=== PATIENT | male | born 1950 | race Two or more races ===

== ENCOUNTER → 2022-05-03 | Outpatient (CLI) | payer OTHER | END | disposition home or self-care (01) | LOC: NUCLEAR 09:24 | DX: R55 Syncope and collapse (principal) ==

== ENCOUNTER 2023-08-19 04:01 | Emergency (ER) | payer OTHER ==
[~2023-08-19] VITALS: Ht 170.2 cm; Wt 58.1 kg
== END 2023-08-19 04:54 | disposition home or self-care (01) ==
LOC: ER 04:02
DX: M25.562 Pain in left knee (principal); M25.561 Pain in right knee
CPT/HCPCS: 96372; 99284; J1885

== ENCOUNTER 2023-08-20 20:54 | Emergency (ER) | payer OTHER ==
[~2023-08-20] VITALS: Ht 170.2 cm; Wt 56.7 kg
== END 2023-08-20 22:14 | disposition home or self-care (01) ==
LOC: ER 20:56
DX: M25.571 Pain in right ankle and joints of right foot (principal); M25.572 Pain in left ankle and joints of left foot
CPT/HCPCS: 96372; 99283; J1100; J1885

== ENCOUNTER 2024-03-08 17:52 | Inpatient (IN) | payer OTHER ==
[~2024-03-08] VITALS: Ht 162.6 cm; Wt 72.6 kg
--- NOTE | 2024-03-08 17:58 | NUR ---
SE RECIBE PTE MASCULINO DE 73 ANOS AAOX3 QUIEN AL MOMENTO REFIERE DEBILIDAD. PTE SE OBSERBA CON CATETER SANCHEZ PATENTE Y DRENANDO A GRAVEDAD. PTE SE OBSERBACON CON EXTREMIDADER IFERIORES. PTE INDICA LLEGAR DE R.D E INDICA PREVIO A LLEGADA EN P.R PTE PRECENTABA OCSTA ULCERA PEPTICA LA CUAL ESTABA SANGRADA. SE MONITOREAN S.V Y SE UBICA.
[2024-03-08] MEDS ORDERED: 0.9 % SODIUM CHLORIDE 1,000 ML IV STA (19:01)
[2024-03-08 19:15] LABS: HEMATOCRIT 32.9 % (39.0-48.0); HEMOGLOBIN 10.8 g/dL (13-16.00); MEAN CELL VOLUME 81.7 fL (80.0-100.00); MEAN CORPUSCULAR HEMOGLOBIN 26.7 pg (27.00-32.0); MEAN CORPUSCULAR HGB CONC 32.7 g/dl (32.0-36.0); PLATELET COUNT 217 K/uL (150-450); RED BLOOD COUNT 4.03 M/uL (4.00-6.00); RED CELL DISTRIBUTION WIDTH 23.9 % (11.5-14.5)
[2024-03-08 19:16] LABS: ABG PH 7.493 (7.35-7.45); ABG PO2 83.4 mmHg (80-100); ABG pCO2 43.9 mmHg (35-45); BASE EXCESS 8.6 mmol/l; BICARBONATE 32.9 mmol/l (23-25); SaO2 97.3 %; Tco2 34.3 mmol/l
[2024-03-08 19:30] LABS: ERYTHROCYTE SEDIMENTATION RATE 56 mm/hr
[2024-03-08 19:35] LABS: allen test SATISFACTORY; o2 32 %; puncture site RADIAL RIGHT
[2024-03-08 19:39] LABS: ALBUMIN 2.5 gm/dL (3.4-5.0); BILIRUBIN TOTAL 0.55 mg/dL (0.3-1.2); CALCIUM 8.9 mg/dL (8.5-10.1); CREATININE SERUM 1.03 mg/dL (0.70-1.30); GFR 70.99; GLOBULINA 3.8 G/DL (2.4-3.5); POTASSIUM 3.73 mEq/L (3.5-5.1); TOTAL PROTEIN 6.3 gm/dL (6.4-8.2)
[2024-03-08 19:41] LABS: INR 1.09; PARTIAL THROMBOPLASTIN TIME 29.9 SECONDS (22.0-34.0); PROTHROMBIN TIME 11.4 SECONDS (9.0-11.5)
--- NOTE | 2024-03-08 19:47 | NUR ---
SE CONECTA A PTE A MONITOR CARDIACO, NBP Y OXIMETRIA CONTINUA. SE LE ORIENTA A PTE SOBRE TRATAMIENTO E INSTRUCCIONES A SEGUIR, EL REFIERE ENTENDER. SE COLECTA MUESTRAS, SE CANALIZA Y SE ADMINISTRA MEDICAMENTO [facility]. PTE CON [facility]ANIEL DE [facility] ([id number]).
[2024-03-08 19:55] LABS: C-REACTIVE PROTEIN 10.5 MG/DL (0.00-0.29)
[2024-03-08 21:46] LABS: URINE APPEARANCE Clear; URINE BILIRRUBIN Negative (NEGATIVE); URINE BLOOD Negative; URINE COLOR Yellow; URINE GLUCOSE Negative (NEGATIVE); URINE KETONE Negative (NEGATIVE); URINE LEUKOCYTE Trace; URINE NITRATE Negative; URINE PROTEIN 30 (NEGATIVE); URINE UROBILINOGEN 0.2 E.U./dl
[2024-03-08 21:50] LABS: URINE BACTERIA 17.6 uL (0.0-1933); URINE RBC 16.1 uL (0.0-20.8); URINE WBC 15.5 uL (0.0-23.2)
[2024-03-08 21:52] LABS: URINE CAST 1.06 uL (0.0-1.40)
--- NOTE | 2024-03-08 23:20 | NUR ---
SE RECIBE PTE MASCULINO ALERTA Y ORIENTADO X3 DEL TURNO ANTERIOR EN CAMA #2 DE UNIDAD DE CRITICO; CONECTADO A MONITOR CARDIACO Y OXIMETRIA DE PULSO CONTINUA. PTE ASISTIDO RESPIRATORIAMENTE CON CANULA NASAL A 3LT/MIN PRESENTANDO SATURACION DE O2 MANUAL AL 100%, AL MOMENTO SIN QUEJA DE DOLOR. VENOPUNCION PATENTES X2 LIBRES DE EDEMA Y ERITEMA, RECIBIENDO TERAPIA DE IVFS 0.9NSS BAJANDO A 65ML/HR. ABDOMEN BLANDO Y DEPRESIBLE CON PERISTALSIS PRESENTE. SONDA URINARIA A GRAVEDAD DRENANDO EGRESO DE ORINA COLOR AMARILLO OSCURO CON APROXIMADAMENTE 100ML. PTE EN CAMA NIVEL MAS BAJO, CABECERA A 45 GRADOS, BARANDAS ELEVADAS Y FRENOS COLOCADOS POR SEGURIDAD. PENDIENTE RE-EVALUACION MEDICA. SE OBSERVA POR CAMBIOS.
--- NOTE | 2024-03-09 07:31 | NUR ---
SE RECIBE PTE MASCULINAS EN UNIDAD DE CRITICO EN RICHY #2. PTE ALERTA Y ORIENTADO X3. EN DESCANZO EN CAMA BAJA CON BARANDAS ELEVADAS Y ESPALDAR A 45 GRADOS. PTE CONECTADO A OXIMETRIA DE PULSO CONTINUO Y MONITOR CARDIACO CON SPO2 DE 99% AL MOMENTO DE RECIBIMIENTO. SE URIAH SV Y SE DOCUMENTAN. PTE ASISTIDO RESPIRATORIAMENTE CON CANULA NASAL A 3LT/MIN. EXTREMIDADES SUPERIORES LIBRES DE EDEMA Y ERITEMA Y 2 CANALIZACIONES PATENTES EN LA CON 0.9NSS @120ML/HR. ABDOMEN BLANDO AL TACTO CON PERISTALSIS PRESENTE Y SONDA URINARIA SANCHEZ BAJANDO A GRAVEDAD CON ORINA COLOR AMARILLO OSCURO. EXTREMIDADES SUPERIORES LIBRES DE EDEMA Y ERITEMA. AL MOMENTO DE RECIBIMIENTO PTE NO REFIERE DOLOR.
[2024-03-09] MEDS ORDERED: FUROsemide 20 MG/2 ML VIAL IV STA (11:46)
[2024-03-09] MEDS ORDERED: CARVEDILOL 3.125 MG TABLET PO SCH (12:05)
[2024-03-09] MEDS ORDERED: FUROsemide 20 MG/2 ML VIAL IV SCH (12:06)
[2024-03-09] MEDS ORDERED: PANTOPRAZOLE SODIUM 40 MG/VIAL VIAL IV SCH (12:07)
[2024-03-09] MEDS ORDERED: 0.9 % SODIUM CHLORIDE 1,000 ML IV SCH (12:15)
[2024-03-09] MEDS ORDERED: CEFTRIAXONE SODIUM 1,000 MG VIAL IV ONE (12:15)
[2024-03-09] MEDS ORDERED: LISINOPRIL 2.5 MG TABLET PO STA (12:32)
[2024-03-09 17:07] LABS: HEMATOCRIT 34.1 % (39.0-48.0); HEMOGLOBIN 10.9 g/dL (13-16.00); MEAN CELL VOLUME 81.6 fL (80.0-100.00); MEAN CORPUSCULAR HEMOGLOBIN 26.2 pg (27.00-32.0); MEAN CORPUSCULAR HGB CONC 32.1 g/dl (32.0-36.0); PLATELET COUNT 273 K/uL (150-450); RED BLOOD COUNT 4.18 M/uL (4.00-6.00); RED CELL DISTRIBUTION WIDTH 23.5 % (11.5-14.5)
[2024-03-09 17:39] LABS: CHOL HDL RATIO 6.6 (0-5.0); MAGNESIUM 2.2 mg/dL (1.8-2.4)
[2024-03-10] MEDS ORDERED: FUROsemide 20 MG/2 ML VIAL IV SCH (17:00)
[2024-03-10] MEDS ORDERED: LOSARTAN POTASSIUM 25 MG TABLET PO SCH (17:00)
[2024-03-10] MEDS ORDERED: PANTOPRAZOLE SODIUM 40 MG/VIAL VIAL IV SCH (21:00)
[2024-03-11] MEDS ORDERED: SUCRALFATE 1 G TABLET PO SCH (13:00)
[2024-03-12 06:34] LABS: MEAN CELL VOLUME 80.1 fL (80.0-100.00); MEAN CORPUSCULAR HGB CONC 33.5 g/dl (32.0-36.0); PLATELET COUNT 311 K/uL (150-450); RED BLOOD COUNT 2.27 M/uL (4.00-6.00); RED CELL DISTRIBUTION WIDTH 23.7 % (11.5-14.5)
[2024-03-12 08:08] LABS: HEMATOCRIT 18.2 % (39.0-48.0); MEAN CORPUSCULAR HEMOGLOBIN 26.8 pg (27.00-32.0)
[2024-03-12 08:09] LABS: HEMOGLOBIN 6.1 g/dL (13-16.00)
[2024-03-12] MEDS ORDERED: PANTOPRAZOLE SODIUM 40 MG/VIAL VIAL IV SCH (10:34)
[2024-03-12] MEDS ORDERED: PANTOPRAZOLE SODIUM 80 MG in 0.9 % SODIUM CHLORIDE 100 ML IV SCH ×2 (11:00→11:30)
[2024-03-12] MEDS ORDERED: HEPARIN SODIUM,PORCINE 5,000 UNITS/ML VIAL IV ONE (17:45)
[2024-03-13 21:27] LABS: HEMATOCRIT 27.6 % (39.0-48.0); MEAN CELL VOLUME 81.8 fL (80.0-100.00); MEAN CORPUSCULAR HGB CONC 33.5 g/dl (32.0-36.0); PLATELET COUNT 396 K/uL (150-450); RED BLOOD COUNT 3.38 M/uL (4.00-6.00); RED CELL DISTRIBUTION WIDTH 21.8 % (11.5-14.5)
[2024-03-13 21:34] LABS: HEMOGLOBIN 9.3 g/dL (13-16.00); MEAN CORPUSCULAR HEMOGLOBIN 27.5 pg (27.00-32.0)
[2024-03-14 18:18] LABS: HEMATOCRIT 33.8 % (39.0-48.0); HEMOGLOBIN 11.2 g/dL (13-16.00); MEAN CELL VOLUME 82.6 fL (80.0-100.00); MEAN CORPUSCULAR HEMOGLOBIN 27.4 pg (27.00-32.0); MEAN CORPUSCULAR HGB CONC 33.2 g/dl (32.0-36.0); PLATELET COUNT 399 K/uL (150-450); RED BLOOD COUNT 4.09 M/uL (4.00-6.00)
[2024-03-15] MEDS ORDERED: MIDAZOLAM HCL 2 MG/2 ML VIAL IV STA (10:58)
[2024-03-15] MEDS ORDERED: fentaNYL CITRATE 50 MCG/ML AMPUL IV STA (10:59)
[2024-03-17] MEDS ORDERED: PANTOPRAZOLE SODIUM 40 MG TABLET.DR PO SCH (09:00)
[2024-03-18] MEDS ORDERED: CARVEDILOL3.125 MG PO (09:44)
[2024-03-18] MEDS ORDERED: PANTOPRAZOLE SO40 MG PO (09:44)
[2024-03-18] MEDS ORDERED: FUROSEMIDE10 MG/1 M1 IV (09:44)
[2024-03-18] MEDS ORDERED: CARAFATE1 GM PO (09:44)
== END 2024-03-18 15:53 | disposition home or self-care (01) | DRG 377 ==
LOC: ER 17:52 → MEDI 03-09 12:32 → ICU 03-12 14:18 → SURG 03-16 06:12
PROVIDERS: Emergency Medicine; General Practice; ADMIT Internal Medicine; ATTEND Internal Medicine
PROC: 4A12X4Z Monitoring of Cardiac Electrical Activity, External Approach (ICD-10-PCS; 2024-03-09)
PROC: BW21ZZZ Computerized Tomography (CT Scan) of Abdomen and Pelvis (ICD-10-PCS; 2024-03-09)
PROC: BB24ZZZ Computerized Tomography (CT Scan) of Bilateral Lungs (ICD-10-PCS; 2024-03-09)
PROC: B246ZZZ Ultrasonography of Right and Left Heart (ICD-10-PCS; 2024-03-09)
PROC: 30233N1 Transfusion of Nonautologous Red Blood Cells into Peripheral Vein, Percutaneous Approach (ICD-10-PCS; 2024-03-12)
PROC: 0DB78ZX Excision of Stomach, Pylorus, Via Natural or Artificial Opening Endoscopic, Diagnostic (ICD-10-PCS; principal; 2024-03-15)
DX: K92.2 Gastrointestinal hemorrhage, unspecified (principal); I50.31 Acute diastolic (congestive) heart failure; I27.20 Pulmonary hypertension, unspecified; D64.9 Anemia, unspecified

== ENCOUNTER 2024-07-25 18:40 | Emergency (ER) | payer OTHER ==
[~2024-07-25] VITALS: Ht 170.2 cm; Wt 46.3 kg
[~2024-07-25 18:40] MED LIST: CARAFATE1 GM PO; CARVEDILOL3.125 MG PO; FUROSEMIDE10 MG/1 M1 IV; PANTOPRAZOLE SO40 MG PO
[2024-07-25 18:51] VITALS: BP 105/73; O2SAT 100
[2024-07-25 20:29] LABS: HEMATOCRIT 37.1 % (39.0-48.0); HEMOGLOBIN 11.6 g/dL (13-16.00); MEAN CORPUSCULAR HEMOGLOBIN 23.4 pg (27.00-32.0); MEAN CORPUSCULAR HGB CONC 31.2 g/dl (32.0-36.0); PLATELET COUNT 289 K/uL (150-450); RED BLOOD COUNT 4.95 M/uL (4.00-6.00); RED CELL DISTRIBUTION WIDTH 22.7 % (11.5-14.5)
[2024-07-25 20:46] LABS: ALBUMIN 3.7 gm/dL (3.4-5.0); BILIRUBIN TOTAL 0.15 mg/dL (0.3-1.2); CALCIUM 9.8 mg/dL (8.5-10.1); CREATININE SERUM 1.04 mg/dL (0.70-1.30); GFR 70.2; GLOBULINA 4.5 G/DL (2.4-3.5); POTASSIUM 5.45 mEq/L (3.5-5.1); TOTAL PROTEIN 8.2 gm/dL (6.4-8.2)
== END 2024-07-25 22:16 | disposition home or self-care (01) ==
LOC: ER 18:42
PROVIDERS: General Practice
DX: R13.10 Dysphagia, unspecified (principal); I10 Essential (primary) hypertension

== ENCOUNTER 2024-08-17 14:51 | Inpatient (IN) | payer OTHER ==
[~2024-08-17] VITALS: Ht 231.1 cm; Wt 47.6 kg
[2024-08-17] MEDS ORDERED: RINGERS SOLUTION,LACTATED 1,000 ML IV SCH ×2 (16:30→23:15)
[2024-08-17 17:22] LABS: HEMATOCRIT 36.4 % (39.0-48.0); HEMOGLOBIN 11.6 g/dL (13-16.00); MEAN CELL VOLUME 73.2 fL (80.0-100.00); MEAN CORPUSCULAR HEMOGLOBIN 23.3 pg (27.00-32.0); MEAN CORPUSCULAR HGB CONC 31.9 g/dl (32.0-36.0); PLATELET COUNT 325 K/uL (150-450); RED BLOOD COUNT 4.97 M/uL (4.00-6.00); RED CELL DISTRIBUTION WIDTH 22.8 % (11.5-14.5)
[2024-08-17 17:23] LABS: ALBUMIN 3.4 gm/dL (3.4-5.0); BILIRUBIN TOTAL 0.34 mg/dL (0.3-1.2); CALCIUM 9.8 mg/dL (8.5-10.1); CREATININE SERUM 1.04 mg/dL (0.70-1.30); GLOBULINA 4.8 G/DL (2.4-3.5); POTASSIUM 4.86 mEq/L (3.5-5.1); TOTAL PROTEIN 8.2 gm/dL (6.4-8.2)
[2024-08-17 18:31] LABS: INR 1.03; PARTIAL THROMBOPLASTIN TIME 26.3 SECONDS (22.0-34.0); PROTHROMBIN TIME 11.2 SECONDS (9.0-11.5)
[2024-08-17 22:02] LABS: URINE APPEARANCE Clear; URINE BILIRRUBIN Negative (NEGATIVE); URINE BLOOD Negative; URINE COLOR Yellow; URINE GLUCOSE Negative (NEGATIVE); URINE KETONE Trace (NEGATIVE); URINE LEUKOCYTE Negative; URINE NITRATE Negative; URINE PROTEIN Negative (NEGATIVE); URINE UROBILINOGEN 0.2 E.U./dl
[2024-08-17 22:05] LABS: URINE BACTERIA 4.8 uL (0.0-1933); URINE EPITHELIAL CELLS 1.4 uL (0.0-38.8); URINE WBC 3.1 uL (0.0-23.2)
[2024-08-17 22:08] LABS: URINE CAST 0.29 uL (0.0-1.40); URINE RBC 0.4 uL (0.0-20.8)
[2024-08-17] MEDS ORDERED: PANTOPRAZOLE SODIUM 40 MG in 0.9 % SODIUM CHLORIDE 8 ML IV PUSH SCH (23:11)
[2024-08-17] MEDS ORDERED: ONDANSETRON HCL 4 MG in DEXTROSE 5 % IN WATER 50 ML IV PRN (23:15)
[2024-08-17] MEDS ORDERED: MORPHINE SULFATE 2 MG/ML CARTRIDGE IV PRN (23:15)
[2024-08-17] MEDS ORDERED: hydrALAZINE HCL 20 MG VIAL IV PRN (23:15)
[2024-08-18 05:57] VITALS: BP 98/62
[2024-08-18 08:07] LABS: INR 1.02; PARTIAL THROMBOPLASTIN TIME 28.5 SECONDS (22.0-34.0); PROTHROMBIN TIME 11.1 SECONDS (9.0-11.5)
[2024-08-18 08:14] LABS: ALBUMIN 2.8 gm/dL (3.4-5.0); ALKALINE PHOSPHATASE 49 U/L (50-136); ALT/SGPT 9 U/L (12-78); ANION GAP 7 (10.0-20.0); AST/SGOT 9 U/L (15-37); BILIRUBIN TOTAL 0.22 mg/dL (0.3-1.2); BILIRUBIN,CONJUGATED < 0.10 mg/dL (0.0-0.2); BILIRUBIN,UNCONJUGATED 0.12 mg/dL (0.0-0.6); BLOOD UREA NITROGEN 25 mg/dL (7-18); BUN CREA RATIO 32 (7.0-25.0); CALCIUM 9.1 mg/dL (8.5-10.1); CARBON DIOXIDE 30 mEq/L (21-32); CHLORIDE 107 mmol/L (98-107); CHOL HDL RATIO 3.8 (0-5.0); CHOLESTEROL 169 mg/dL (0-200); CREATININE SERUM 0.77 mg/dL (0.70-1.30); GFR 99.03; GLOBULINA 3.7 G/DL (2.4-3.5); GLUCOSE FASTING 84 mg/dL (65-100); HDL 45 mg/dl (40-60); LDL 112 mg/dl (0-130); LIPASE 31 U/L (13-75); OSMOLALITY SERUM 283 MOSM/KG (275-295); POTASSIUM 4.38 mEq/L (3.5-5.1); SODIUM 140 mmol/L (136-145); TOTAL PROTEIN 6.5 gm/dL (6.4-8.2); TRIGLYCERIDES 58 mg/dL (0-150); VLDL 11 (0-39)
[2024-08-18 08:27] LABS: C-REACTIVE PROTEIN 1.11 MG/DL (0.00-0.29)
[2024-08-18 08:28] VITALS: BP 99/59; O2SAT 100
[2024-08-18 08:28] LABS: HEMATOCRIT 32.4 % (39.0-48.0); HEMOGLOBIN 10.6 g/dL (13-16.00); MEAN CELL VOLUME 71.6 fL (80.0-100.00); MEAN CORPUSCULAR HEMOGLOBIN 23.4 pg (27.00-32.0); MEAN CORPUSCULAR HGB CONC 32.6 g/dl (32.0-36.0); PLATELET COUNT 268 K/uL (150-450); RED BLOOD COUNT 4.53 M/uL (4.00-6.00); RED CELL DISTRIBUTION WIDTH 22.5 % (11.5-14.5)
[2024-08-18 08:36] LABS: ERYTHROCYTE SEDIMENTATION RATE 69 mm/hr
[2024-08-18 11:07] LABS: PH,URINE 5.5 (5.0-8.0); URINE APPEARANCE Clear; URINE BILIRRUBIN Negative (NEGATIVE); URINE BLOOD Negative; URINE COLOR Yellow; URINE GLUCOSE Negative (NEGATIVE); URINE KETONE Negative (NEGATIVE); URINE LEUKOCYTE Negative; URINE NITRATE Negative; URINE PROTEIN Negative (NEGATIVE); URINE UROBILINOGEN 0.2 E.U./dl
[2024-08-18 11:24] LABS: URINE BACTERIA 2.4 uL (0.0-1933); URINE EPITHELIAL CELLS 0.4 uL (0.0-38.8); URINE WBC 0.6 uL (0.0-23.2)
[2024-08-18] MEDS ORDERED: 0.9 % SODIUM CHLORIDE 1,000 ML IV SCH (17:00)
[2024-08-18 18:19] VITALS: BP 105/60
[2024-08-19 02:18] VITALS: BP 134/67
[2024-08-19] MEDS ORDERED: ENOXAPARIN SODIUM 40 MG/0.4 ML SYRINGE SUBCUTANEO SCH (09:00)
[2024-08-19 09:55] VITALS: BP 108/61; O2SAT 97
[2024-08-19 18:47] VITALS: BP 121/63
[2024-08-20 02:12] VITALS: BP 99/57; O2SAT 100
[2024-08-20 06:31] LABS: HEMATOCRIT 32.1 % (39.0-48.0); HEMOGLOBIN 10.5 g/dL (13-16.00); MEAN CELL VOLUME 72.2 fL (80.0-100.00); MEAN CORPUSCULAR HEMOGLOBIN 23.5 pg (27.00-32.0); MEAN CORPUSCULAR HGB CONC 32.6 g/dl (32.0-36.0); PLATELET COUNT 248 K/uL (150-450); RED BLOOD COUNT 4.45 M/uL (4.00-6.00); RED CELL DISTRIBUTION WIDTH 23.1 % (11.5-14.5)
[2024-08-20 06:57] LABS: CALCIUM 8.9 mg/dL (8.5-10.1); CREATININE SERUM 0.68 mg/dL (0.70-1.30); GFR 114.3; POTASSIUM 4.08 mEq/L (3.5-5.1)
[2024-08-20] MEDS ORDERED: DEXTROSE 50 % IN WATER 0.5 G/ML VIAL IV ONE (08:30)
[2024-08-20 09:11] VITALS: BP 92/54; O2SAT 99
[2024-08-20 18:22] VITALS: BP 106/54; O2SAT 98
[2024-08-21 00:54] VITALS: BP 113/58; O2SAT 97
[2024-08-21 08:42] VITALS: BP 97/53
[2024-08-21] MEDS ORDERED: ONABOTULINUMTOXINA 100 UNIT VIAL IJ ONE (09:00)
[2024-08-21] MEDS ORDERED: MIDAZOLAM HCL 2 MG/2 ML VIAL IV ONE (13:15)
[2024-08-21] MEDS ORDERED: fentaNYL CITRATE 50 MCG/ML AMPUL IV ONE (13:30)
[2024-08-21] MEDS ORDERED: PANTOPRAZOLE SODIUM 40 MG/VIAL VIAL IV SCH (17:00)
[2024-08-21] MEDS ORDERED: DEXTROSE 50 % IN WATER 0.5 G/ML DISP.SYRIN IV ONE (17:53)
[2024-08-21 18:10] VITALS: BP 130/64
[2024-08-21] MEDS ORDERED: DEXTROSE 5 % AND 0.9 % NACL 1,000 ML IV SCH (22:00)
[2024-08-22 03:06] VITALS: BP 95/56
[2024-08-22 08:39] VITALS: BP 90/50
[2024-08-22] MEDS ORDERED: LIDOCAINE HCL 1% 20 ML VIAL IJ ONE (19:57)
[2024-08-22] MEDS ORDERED: CEFAZOLIN SODIUM 1,000 MG VIAL ONE (19:57)
[2024-08-22] MEDS ORDERED: MORPHINE SULFATE 4 MG/ML CARTRIDGE IV PRN (21:45)
[2024-08-23 02:38] VITALS: BP 123/72; O2SAT 100
[2024-08-23] MEDS ORDERED: KETOROLAC TROMETHAMINE 30 MG VIAL IM STA (07:28)
[2024-08-23] MEDS ORDERED: KETOROLAC TROMETHAMINE 30 MG VIAL IM PRN (07:30)
[2024-08-23 08:42] VITALS: BP 119/62
[2024-08-23 21:36] VITALS: BP 111/64; O2SAT 99
[2024-08-23 21:37] VITALS: BP 111/64; O2SAT 97
[2024-08-24 01:57] VITALS: BP 110/52
[2024-08-24 09:35] VITALS: BP 105/56; O2SAT 98
[2024-08-24 18:12] VITALS: BP 131/64; O2SAT 96
== END 2024-08-24 20:44 | disposition home or self-care (01) | DRG 392 ==
LOC: ER 14:53 → MEDJ 23:13
PROVIDERS: General Practice; Student in an Organized Health Care Education/Training Program; ADMIT Internal Medicine; ATTEND Internal Medicine
PROC: 3E0336Z Introduction of Nutritional Substance into Peripheral Vein, Percutaneous Approach (ICD-10-PCS; 2024-08-18)
PROC: 3E0G8GC Introduction of Other Therapeutic Substance into Upper GI, Via Natural or Artificial Opening Endoscopic (ICD-10-PCS; principal; 2024-08-21)
PROC: 0DB48ZX Excision of Esophagogastric Junction, Via Natural or Artificial Opening Endoscopic, Diagnostic (ICD-10-PCS; 2024-08-21)
PROC: 3E0G76Z Introduction of Nutritional Substance into Upper GI, Via Natural or Artificial Opening (ICD-10-PCS; 2024-08-22)
PROC: 0DH60UZ Insertion of Feeding Device into Stomach, Open Approach (ICD-10-PCS; 2024-08-22)
PROC: 0DJ08ZZ Inspection of Upper Intestinal Tract, Via Natural or Artificial Opening Endoscopic (ICD-10-PCS; 2024-08-22)
DX: K22.0 Achalasia of cardia (principal); K22.10 Ulcer of esophagus without bleeding; Z68.1 Body mass index [BMI] 19.9 or less, adult; E46 Unspecified protein-calorie malnutrition; K21.9 Gastro-esophageal reflux disease without esophagitis; K22.2 Esophageal obstruction; R13.19 Other dysphagia; E86.0 Dehydration; D64.89 Other specified anemias; I10 Essential (primary) hypertension

== ENCOUNTER 2025-07-22 10:54 | Day surgery (SDC) | payer OTHER ==
[2025-07-22] MEDS ORDERED: MIDAZOLAM HCL 2 MG/2 ML VIAL IV ONE (17:00)
[2025-07-22] MEDS ORDERED: DIPHENHYDRAMINE HCL 50 MG/ML VIAL 1ML IV ONE (17:00)
== END 2025-07-22 14:50 | disposition home or self-care (01) ==
LOC: AMB-ENDOS 10:54
PROVIDERS: ATTEND Internal Medicine Gastroenterology
DX: K22.2 Esophageal obstruction (principal); R13.19 Other dysphagia; K22.0 Achalasia of cardia